=== PATIENT | male | born 1960 | race Caucasian/White ===

== ENCOUNTER 2023-08-19 05:50 | Inpatient (IN) | payer BC ==
[~2023-08-19] VITALS: Ht 182.9 cm; Wt 72.7 kg
[2023-08-19] VITALS (10 sets, daily range): BP systolic 96–137; BP diastolic 51–78; PULSE 61–88; RESP 14–23; TEMP 97.3–101.5; O2SAT 97–98
[2023-08-19] MEDS ORDERED: pantoprazole 40mg IV 80 MG in normal saline 100ml IV soln 100 ML IV ONE (05:55)
[2023-08-19] MEDS: normal saline 1000ML IV soln IVB ONE (06:05)
[2023-08-19 06:31] LABS: ALBUMIN 2.5 G/DL (3.4-5.0); ANION GAP 13 (8-16); BLOOD UREA NITROGEN 68 MG/DL (7-18); BUN/CREATININE RATIO 40.2 (10.0-20.0); CALCIUM 8.3 MG/DL (8.5-10.1); CHLORIDE 102 MMOL/L (99-107); CREATININE 1.69 MG/DL (0.60-1.10); GLUCOSE 199 MG/DL (70-104); POTASSIUM 4.2 MMOL/L (3.5-5.1); SODIUM 140 MMOL/L (135-145); TOTAL CARBON DIOXIDE 24.8 MMOL/L (24-32); eCRCL 45 ML/MIN; eGFR 41 ML/MIN
[2023-08-19 06:32] LABS: ETHANOL < 10 MG/DL (<10)
[2023-08-19 06:36] LABS: BASOPHILS # (AUTO) 0.1 X10'3 (0-0.2); BASOPHILS % (AUTO) 0.3 % (0-1); EOSINOPHILS % (AUTO) 0 % (0-6); LYMPHOCYTES # (AUTO) 0.4 X10'3 (1.1-4.8); LYMPHOCYTES % (AUTO) 1.2 % (21-51); MEAN CORPUSCULAR HEMOGLOBIN 28.7 PG (27.0-31.0); MEAN CORPUSCULAR HGB CONC 31.4 g/dL (33.0-36.5); MEAN CORPUSCULAR VOLUME 91.6 FL (78-98); MEAN PLATELET VOLUME 9.3 FL (7.4-10.4); MONOCYTES # (AUTO) 1.9 X10'3 (0-0.9); MONOCYTES % (AUTO) 5.8 % (2-12); NEUTROPHILS # (AUTO) 30.9 X10'3 (1.8-7.7); NEUTROPHILS % (AUTO) 92.7 % (42-75); PLATELET COUNT 584 X10'3 (140-440); RED BLOOD COUNT 2.39 X10'6 (4.70-6.10)
[2023-08-19 06:39] LABS: HEMATOCRIT 21.9 % (42.0-52.0); HEMOGLOBIN 6.9 g/dl (14.0-17.9); WHITE BLOOD COUNT 33.3 X10'3 (4.5-11.0)
[2023-08-19] MEDS: ringers solution, lacted 1,000 ML IV ONE ×2 (06:48→07:04)
[2023-08-19 06:52] LABS: BILIRUBIN,URINE NEGATIVE (Neg); CLARITY,URINE CLEAR (Clear); COLOR,URINE YELLOW (Yellow); GLUCOSE, URINE NEGATIVE (Neg); KETONES,URINE TRACE mg/dl (Neg); LEUKOCYTE ESTERASE ,URINE NEGATIVE (Neg); NITRITES, URINE NEGATIVE (Neg); OCCULT BLOOD,URINE NEGATIVE (Neg); PH,URINE 5.5 (4.8-8.0); PROTEIN,URINE NEGATIVE (Neg); UROBILINOGEN,URINE 0.2 E.U/dL (0.2-1.0)
[2023-08-19 06:54] LABS: UA COLLECTION TYPE FOLEY CATH
[2023-08-19] MEDS: octreotide 100mcg/1 ml ampule IV ONE (07:01)
[2023-08-19] MEDS: CefTRIAXone/D5W-Rocephin 1gm 50 ML IV ONE (07:02)
[2023-08-19] MEDS: pantoprazole 40 MG vial IV ONE (07:03)
[2023-08-19 07:06] LABS: ALANINE AMINOTRANSFERASE 28 U/L (12-78); ALBUMIN/GLOBULIN RATIO 0.9 (1.1-1.5); ALKALINE PHOSPHATASE 30 IU/L (46-116); ASPARTATE AMINO TRANSFERASE 31 U/L (10-37); BILIRUBIN,DIRECT 0.1 MG/DL (0-0.3); BILIRUBIN,TOTAL 0.2 MG/DL (0.1-1.0); TOTAL PROTEIN 5.4 G/DL (6.4-8.2)
[2023-08-19 07:09] LABS: APTT 23 SECONDS (22-32); INR 1.3 INR
[2023-08-19 07:29] LABS: PLATELET ESTIMATE INCREASED; TOTAL CELLS COUNTED 100
[2023-08-19 07:30] LABS: POLYCHROMASIA FEW
[2023-08-19] MEDS: phytonadione inj. 5 MG in normal saline 100ml IV soln 100 ML IV ONE (07:39)
[2023-08-19] MEDS ORDERED: pantoprazole 40MG/NS 100ML BAG 100 ML IV SCH (08:00)
[2023-08-19] MEDS: octreotide inj. 1,250 MCG in normal saline 250ml IV soln 243.75 ML IV SCH (08:21)
[2023-08-19] MEDS: thiamine 100mg/ml 2ml inj. IV ONE (08:35)
[2023-08-19] MEDS: pantoprazole 40MG/NS 100ML BAG 100 ML IV SCH (08:35)
[2023-08-19 09:03] LABS: BASOPHILS % (AUTO) 0.2 % (0-1); EOSINOPHILS % (AUTO) 0 % (0-6); LYMPHOCYTES # (AUTO) 0.2 X10'3 (1.1-4.8); LYMPHOCYTES % (AUTO) 0.8 % (21-51); MEAN CORPUSCULAR HEMOGLOBIN 29.3 PG (27.0-31.0); MEAN CORPUSCULAR HGB CONC 32.3 g/dL (33.0-36.5); MEAN CORPUSCULAR VOLUME 90.7 FL (78-98); MEAN PLATELET VOLUME 8.8 FL (7.4-10.4); MONOCYTES # (AUTO) 0.9 X10'3 (0-0.9); MONOCYTES % (AUTO) 4.1 % (2-12); NEUTROPHILS % (AUTO) 94.9 % (42-75); PLATELET COUNT 372 X10'3 (140-440); RED BLOOD COUNT 2.39 X10'6 (4.70-6.10); RED CELL DISTRIBUTION WIDTH 13.7 % (11.5-14.5); WHITE BLOOD COUNT 23.1 X10'3 (4.5-11.0)
[2023-08-19 09:08] LABS: HEMATOCRIT 21.6 % (42.0-52.0)
[2023-08-19 09:19] LABS: ALANINE AMINOTRANSFERASE 24 U/L (12-78); ALBUMIN 1.9 G/DL (3.4-5.0); ALBUMIN/GLOBULIN RATIO 0.8 (1.1-1.5); ALKALINE PHOSPHATASE 20 IU/L (46-116); ANION GAP 11 (8-16); ASPARTATE AMINO TRANSFERASE 16 U/L (10-37); BILIRUBIN,TOTAL 0.3 MG/DL (0.1-1.0); BLOOD UREA NITROGEN 60 MG/DL (7-18); BUN/CREATININE RATIO 46.2 (10.0-20.0); CALCIUM 7.4 MG/DL (8.5-10.1); CHLORIDE 107 MMOL/L (99-107); GLUCOSE 127 MG/DL (70-104); POTASSIUM 4.3 MMOL/L (3.5-5.1); SODIUM 144 MMOL/L (135-145); TOTAL CARBON DIOXIDE 25.9 MMOL/L (24-32); TOTAL PROTEIN 4.4 G/DL (6.4-8.2); eCRCL 59 ML/MIN; eGFR 56 ML/MIN
[2023-08-19] MEDS: folic acid 1mg/0.2ml inj IV ONE (09:37)
[2023-08-19] MEDS ORDERED: LORazepam 2 mg/ml vial IV PRN ×2 (09:50)
[2023-08-19] MEDS ORDERED: potassium Cl 40MEQ/1/2NS 520ml 520 ML IV PRN (09:50)
[2023-08-19] MEDS ORDERED: magnesium 2GM in 50ml NS 50 ML IV PRN (09:50)
[2023-08-19] MEDS ORDERED: potassium Cl 20 mEq SR tablet PO PRN ×2 (09:50)
[2023-08-19] MEDS ORDERED: mag hydrox/Alum hydrox/simeth 30ml oral suspension PO PRN (09:50)
[2023-08-19] MEDS ORDERED: HYDROcodone/acetaminophen 5mg/325mg tablet PO PRN (09:50)
[2023-08-19] MEDS ORDERED: acetaminophen 325mg tablet PO PRN (09:50)
[2023-08-19] MEDS ORDERED: HYDROcodone/acetaminophen 10/325mg tab PO PRN (09:50)
[2023-08-19] MEDS ORDERED: morphine 2 MG/ML inj. syringe IV PRN (09:50)
[2023-08-19] MEDS ORDERED: haloperidol lactate 5mg/ml inj IM PRN (09:50)
[2023-08-19] MEDS ORDERED: magnesium Cl slow-release 64mg tablet PO PRN (09:50)
[2023-08-19] MEDS ORDERED: dextrose 50%-water 50ml dispensing syringe IV PRN (09:50)
[2023-08-19] MEDS ORDERED: magnesium 4gm in 100ml NS 100 ML IV PRN (09:50)
[2023-08-19] MEDS ORDERED: ondansetron/PF 4mg/2ml inj IV PRN (09:50)
[2023-08-19] MEDS ORDERED: magnesium hydroxide 30ml (MOM) UD suspension PO PRN (09:50)
[2023-08-19] MEDS: thiamine 100mg/ml 2ml inj. IV SCH (12:26)
[2023-08-19] MEDS: acetaminophen 1,000mg/100ml IV 100 ML IV SCH (12:27)
[2023-08-19] MEDS: dextrose 5%-1/2 normal saline 1,000 ML IV SCH (12:28)
[2023-08-19] MEDS ORDERED: thiamine 100mg/ml 2ml inj. IV SCH (13:00)
[2023-08-19] MEDS ORDERED: LIDOcaine 2% Viscous 15ml cup ONE (13:55)
[2023-08-19] MEDS ORDERED: fentaNYL/PF 50MCG/1 ML 2ML syringe ONE (13:56)
[2023-08-19] MEDS ORDERED: epiNEPHrine 0.1mg/ml 10ml syringe ONE (13:56)
[2023-08-19] MEDS ORDERED: MIDAZolam 1 MG/ML 5ML VIAL ONE (13:56)
[2023-08-19] MEDS: PEG 3350/Na sulf,bicarb,Cl/KCl oral sol 4 liter bottle PO ONE (16:45)
[2023-08-19 16:47] LABS: BASOPHILS % (AUTO) 0.2 % (0-1); EOSINOPHILS % (AUTO) 0 % (0-6); HEMATOCRIT 23.2 % (42.0-52.0); HEMOGLOBIN 7.5 g/dl (14.0-17.9); LYMPHOCYTES # (AUTO) 0.4 X10'3 (1.1-4.8); MEAN CORPUSCULAR HEMOGLOBIN 29.2 PG (27.0-31.0); MEAN CORPUSCULAR HGB CONC 32.2 g/dL (33.0-36.5); MEAN CORPUSCULAR VOLUME 90.6 FL (78-98); MEAN PLATELET VOLUME 8.3 FL (7.4-10.4); MONOCYTES # (AUTO) 0.9 X10'3 (0-0.9); MONOCYTES % (AUTO) 4.9 % (2-12); NEUTROPHILS # (AUTO) 17.6 X10'3 (1.8-7.7); NEUTROPHILS % (AUTO) 92.9 % (42-75); PLATELET COUNT 378 X10'3 (140-440); RED BLOOD COUNT 2.56 X10'6 (4.70-6.10); WHITE BLOOD COUNT 18.9 X10'3 (4.5-11.0)
[2023-08-19] MEDS: K and/or MAG REPLACEMENT MC SCH (20:00)
[2023-08-19] MEDS: docusate sod 100mg capsule PO SCH (20:00)
[2023-08-20] VITALS (29 sets, daily range): BP systolic 81–162; BP diastolic 22–71; PULSE 54–103; RESP 12–20; TEMP 97–99.9; O2SAT 92–100
[2023-08-20] MEDS: multivitamins, therapeutics tablet PO SCH (08:00)
[2023-08-20] MEDS ORDERED: folic acid 1mg/0.2ml inj IV SCH (08:00)
[2023-08-20] MEDS: CefTRIAXone/D5W-Rocephin 1gm 50 ML IV SCH (08:50)
[2023-08-20 10:59] LABS: BASOPHILS # (AUTO) 0.1 X10'3 (0-0.2); BASOPHILS % (AUTO) 0.7 % (0-1); EOSINOPHILS # (AUTO) 0.1 X10'3 (0-0.9); EOSINOPHILS % (AUTO) 1.1 % (0-6); LYMPHOCYTES # (AUTO) 0.6 X10'3 (1.1-4.8); LYMPHOCYTES % (AUTO) 5.3 % (21-51); MEAN CORPUSCULAR HEMOGLOBIN 29.8 PG (27.0-31.0); MEAN CORPUSCULAR HGB CONC 33.1 g/dL (33.0-36.5); MEAN PLATELET VOLUME 7.9 FL (7.4-10.4); MONOCYTES # (AUTO) 0.9 X10'3 (0-0.9); MONOCYTES % (AUTO) 7.8 % (2-12); NEUTROPHILS # (AUTO) 10.3 X10'3 (1.8-7.7); NEUTROPHILS % (AUTO) 85.1 % (42-75); PLATELET COUNT 329 X10'3 (140-440); RED BLOOD COUNT 2.04 X10'6 (4.70-6.10); RED CELL DISTRIBUTION WIDTH 14.3 % (11.5-14.5); WHITE BLOOD COUNT 12.2 X10'3 (4.5-11.0)
[2023-08-20 11:02] LABS: HEMATOCRIT 18.3 % (42.0-52.0); HEMOGLOBIN 6.1 g/dl (14.0-17.9)
[2023-08-20 11:09] LABS: INR 1.1 INR; PROTHROMBIN TIME 11.4 SECONDS (9.0-12.0)
[2023-08-20 11:11] LABS: ANION GAP 1 (8-16); ASPARTATE AMINO TRANSFERASE 12 U/L (10-37); BILIRUBIN,TOTAL 0.2 MG/DL (0.1-1.0); BLOOD UREA NITROGEN 32 MG/DL (7-18); BUN/CREATININE RATIO 34.4 (10.0-20.0); CHLORIDE 110 MMOL/L (99-107); CREATININE 0.93 MG/DL (0.60-1.10); GLUCOSE 120 MG/DL (70-104); LIPASE 11 U/L (16-77); MAGNESIUM 1.9 MG/DL (1.5-2.4); PHOSPHORUS 2.5 MG/DL (2.3-4.5); POTASSIUM 3.6 MMOL/L (3.5-5.1); SODIUM 145 MMOL/L (135-145); TOTAL CARBON DIOXIDE 34.2 MMOL/L (24-32); TOTAL PROTEIN 4.3 G/DL (6.4-8.2); eCRCL 83 ML/MIN; eGFR 82 ML/MIN
[2023-08-20] MEDS: folic acid 1mg/0.2ml inj IV SCH (11:11)
[2023-08-20 11:15] LABS: ALANINE AMINOTRANSFERASE 19 U/L (12-78); ALBUMIN 1.9 G/DL (3.4-5.0); ALBUMIN/GLOBULIN RATIO 0.8 (1.1-1.5); ALKALINE PHOSPHATASE 18 IU/L (46-116); AMYLASE 15 U/L (25-115)
[2023-08-20] MEDS ORDERED: fentaNYL/PF 50MCG/1 ML 2ML syringe ONE (12:47)
[2023-08-20] MEDS ORDERED: MIDAZolam 1 MG/ML 5ML VIAL ONE (12:47)
[2023-08-20] MEDS ORDERED: LIDOcaine 2% Viscous 15ml cup ONE (12:47)
[2023-08-20 21:22] LABS: BASOPHILS # (AUTO) 0.2 X10'3 (0-0.2); BASOPHILS % (AUTO) 1.7 % (0-1); EOSINOPHILS # (AUTO) 0.1 X10'3 (0-0.9); LYMPHOCYTES # (AUTO) 0.6 X10'3 (1.1-4.8); MEAN CORPUSCULAR HEMOGLOBIN 29.9 PG (27.0-31.0); MEAN CORPUSCULAR HGB CONC 32.6 g/dL (33.0-36.5); MEAN CORPUSCULAR VOLUME 91.8 FL (78-98); MEAN PLATELET VOLUME 8.3 FL (7.4-10.4); MONOCYTES # (AUTO) 0.9 X10'3 (0-0.9); MONOCYTES % (AUTO) 7.4 % (2-12); NEUTROPHILS # (AUTO) 10.6 X10'3 (1.8-7.7); NEUTROPHILS % (AUTO) 84.9 % (42-75); PLATELET COUNT 314 X10'3 (140-440); RED BLOOD COUNT 2.31 X10'6 (4.70-6.10); RED CELL DISTRIBUTION WIDTH 14.4 % (11.5-14.5); WHITE BLOOD COUNT 12.5 X10'3 (4.5-11.0)
[2023-08-20 21:29] LABS: HEMOGLOBIN 6.9 g/dl (14.0-17.9)
[2023-08-20 21:30] LABS: HEMATOCRIT 21.2 % (42.0-52.0)
[2023-08-20 21:57] LABS: PLATELET ESTIMATE NORMAL; POIKILOCYTOSIS FEW; TOTAL CELLS COUNTED 100
[2023-08-20 21:58] LABS: STOMATOCYTES FEW
[2023-08-21 00:05] VITALS: BP 131/64; PULSE 66; RESP 16; TEMP 97.1
[2023-08-21 00:54] VITALS: BP 132/58; PULSE 64; RESP 16; TEMP 97.1
[2023-08-21 02:00] VITALS: BP 132/58; PULSE 64; RESP 16; TEMP 97.1; O2SAT 97
[2023-08-21 06:00] VITALS: BP 143/68; PULSE 67; RESP 14; TEMP 97.6; O2SAT 96
[2023-08-21] MEDS ORDERED: docusate sod 100mg capsule PO PRN (08:35)
[2023-08-21 09:22] LABS: PROTHROMBIN TIME 10.5 SECONDS (9.0-12.0)
[2023-08-21 09:26] LABS: BASOPHILS % (AUTO) 0.4 % (0-1); EOSINOPHILS # (AUTO) 0.2 X10'3 (0-0.9); EOSINOPHILS % (AUTO) 1.3 % (0-6); HEMATOCRIT 24.8 % (42.0-52.0); HEMOGLOBIN 8.1 g/dl (14.0-17.9); LYMPHOCYTES % (AUTO) 7.7 % (21-51); MEAN CORPUSCULAR HGB CONC 32.6 g/dL (33.0-36.5); MEAN CORPUSCULAR VOLUME 89.1 FL (78-98); MEAN PLATELET VOLUME 8.1 FL (7.4-10.4); MONOCYTES # (AUTO) 1.2 X10'3 (0-0.9); MONOCYTES % (AUTO) 8.5 % (2-12); NEUTROPHILS # (AUTO) 11.1 X10'3 (1.8-7.7); NEUTROPHILS % (AUTO) 82.1 % (42-75); PLATELET COUNT 327 X10'3 (140-440); RED BLOOD COUNT 2.78 X10'6 (4.70-6.10); RED CELL DISTRIBUTION WIDTH 16.1 % (11.5-14.5); WHITE BLOOD COUNT 13.5 X10'3 (4.5-11.0)
[2023-08-21 09:28] LABS: ALANINE AMINOTRANSFERASE 19 U/L (12-78); ALBUMIN 1.9 G/DL (3.4-5.0); ALBUMIN/GLOBULIN RATIO 0.7 (1.1-1.5); ALKALINE PHOSPHATASE 24 IU/L (46-116); AMYLASE 55 U/L (25-115); ANION GAP 0 (8-16); ASPARTATE AMINO TRANSFERASE 14 U/L (10-37); BILIRUBIN,TOTAL 0.5 MG/DL (0.1-1.0); BLOOD UREA NITROGEN 11 MG/DL (7-18); BUN/CREATININE RATIO 14.1 (10.0-20.0); CHLORIDE 108 MMOL/L (99-107); CREATININE 0.78 MG/DL (0.60-1.10); GLUCOSE 117 MG/DL (70-104); LIPASE 103 U/L (16-77); PHOSPHORUS 1.9 MG/DL (2.3-4.5); POTASSIUM 3.5 MMOL/L (3.5-5.1); SODIUM 141 MMOL/L (135-145); TOTAL CARBON DIOXIDE 33.1 MMOL/L (24-32); TOTAL PROTEIN 4.7 G/DL (6.4-8.2); eCRCL 98 ML/MIN; eGFR > 90 ML/MIN
[2023-08-21 10:00] VITALS: BP 152/67; PULSE 56; RESP 22; TEMP 98.2; O2SAT 98
[2023-08-21 10:18] LABS: TOTAL CELLS COUNTED 100
[2023-08-21 10:20] LABS: ANISOCYTOSIS 1+; PLATELET ESTIMATE NORMAL; POLYCHROMASIA FEW; STOMATOCYTES FEW
[2023-08-21] MEDS ORDERED: FERR324T4 PO (10:20)
[2023-08-21] MEDS ORDERED: SENN-36 PO (10:20)
[2023-08-21] MEDS ORDERED: MULT-25 PO (10:20)
[2023-08-21] MEDS ORDERED: thiamine tablet PO (10:20)
[2023-08-21] MEDS ORDERED: FOLI1TAB27 PO (10:20)
[2023-08-21] MEDS ORDERED: PANT40TA54 PO (10:20)
[2023-08-21] MEDS ORDERED: LEVO-65 PO (10:20)
[2023-08-21 10:30] VITALS: RESP 20; O2SAT 98
[2023-08-23] MEDS ORDERED: thiamine 100mg tablet PO SCH (08:00)
[2023-08-24] MEDS ORDERED: folic acid 1mg tablet PO SCH ×2 (08:00)
[2023-08-24] MEDS ORDERED: thiamine 100mg tablet PO SCH (08:00)
== END 2023-08-21 14:20 | disposition home or self-care (01) | DRG 377 ==
LOC: ER 05:51 → ED HOLD 09:55 → PCU 3S 18:11
PROVIDERS: ADMIT Internal Medicine; ATTEND Internal Medicine
PROC: 0DB38ZX Excision of Lower Esophagus, Via Natural or Artificial Opening Endoscopic, Diagnostic (ICD-10-PCS; principal; 2023-08-19)
PROC: 0DB78ZX Excision of Stomach, Pylorus, Via Natural or Artificial Opening Endoscopic, Diagnostic (ICD-10-PCS; 2023-08-19)
PROC: 0DB68ZX Excision of Stomach, Via Natural or Artificial Opening Endoscopic, Diagnostic (ICD-10-PCS; 2023-08-19)
PROC: 0DBN8ZX Excision of Sigmoid Colon, Via Natural or Artificial Opening Endoscopic, Diagnostic (ICD-10-PCS; 2023-08-19)
PROC: 30233N1 Transfusion of Nonautologous Red Blood Cells into Peripheral Vein, Percutaneous Approach (ICD-10-PCS; 2023-08-19)
DX: K29.71 Gastritis, unspecified, with bleeding (principal); J18.9 Pneumonia, unspecified organism; R57.1 Hypovolemic shock; N17.9 Acute kidney failure, unspecified; K20.91 Esophagitis, unspecified with bleeding; F10.20 Alcohol dependence, uncomplicated; E86.0 Dehydration; K44.9 Diaphragmatic hernia without obstruction or gangrene; K57.30 Diverticulosis of large intestine without perforation or abscess without bleeding; K64.8 Other hemorrhoids; T39.395A Adverse effect of other nonsteroidal anti-inflammatory drugs [NSAID], initial encounter; E86.9 Volume depletion, unspecified; Y90.9 Presence of alcohol in blood, level not specified; D50.0 Iron deficiency anemia secondary to blood loss (chronic); Y92.89 Other specified places as the place of occurrence of the external cause; Z82.3 Family history of stroke; Z87.891 Personal history of nicotine dependence
CPT/HCPCS: 36415; 36430; 43235; 43239; 45380; 70450; 71045; 80048; 80053; 80076; 80320; 81003; 82150; 83605; 83690; 83735; 84100; 84145; 85007; 85025; 85610; 85730; 86885; 86900; 86901; 86920; 87040; 93005; 96365; 96367; 96375; 97116; 97161; 97530; 99152; 99291; A4620; C1758; C9113; G0378; J0131; J0171; J0696; J2250; J2354; J3010; J3411; J3430; J3490; J7030; J7040; J7050; J7120; P9016